=== PATIENT | female | born 1950 | race Caucasian/White ===

== ENCOUNTER 2022-04-17 09:04 | Emergency (ER) | payer BC ==
[2022-04-17] MEDS ORDERED: VOLTAREN1%GEL TOP (10:27)
== END 2022-04-17 10:54 | disposition home or self-care (01) | DRG 534 ==
LOC: EDBD 09:41 → ED 09:41
DX: S72.432A Displaced fracture of medial condyle of left femur, initial encounter for closed fracture (principal); I10 Essential (primary) hypertension; W18.30XA Fall on same level, unspecified, initial encounter; Y92.007 Garden or yard of unspecified non-institutional (private) residence as the place of occurrence of the external cause